=== PATIENT | female | born 1980 | race Caucasian/White ===

== ENCOUNTER 2017-02-26 04:20 | Emergency (ER) | payer SELFPAY ==
[~2017-02-26] VITALS: Ht 162.6 cm; Wt 79.4 kg
[2017-02-26 04:23] VITALS: BP 130/90
--- NOTE | 2017-02-26 04:30 | NUR ---
TO ER BED 11
--- NOTE | 2017-02-26 04:35 | NUR ---
Patient being evaluated by physician at bedside.
--- NOTE | 2017-02-26 04:35 | NUR ---
TO ER BED 11
--- NOTE | 2017-02-26 04:35 | NUR ---
Soniya morales in ED - 02/26/17 at 0447 by [facility] TO ER BED 11
--- NOTE | 2017-02-26 04:36 | NUR ---
PATIENT IS A 36 Y/O FEMALE WHO PRESENTS TO THE ED S/P FALL. PT STATES, "I FELL ON MY LEFT LEG WHEN I WAS GOING TO THE KITCHEN." PT REPORTS 10/10 SHARP PAIN ON THE LEFT LEG AND FOOT THAT DOES NOT RADIATE. SENSATION INTACT, ROM INTACT, AND CAP REFILL IMMEDIATE. PT DENIES CP, SOB, REPORTS NAUSEA DENIES VOMITING/DIARRHEA. PT AAOX4, RR EVEN/UNLABORED. PT REPOSITIONED FOR COMFORT, BED IN LOWEST POSITION. ER MD DR. SABA NOTIFIED. WILL CONTINUE TO MONITOR.
[2017-02-26] MEDS ORDERED: MORPHINE SULFATE 2 MG/ML SYR IM ONE (04:40)
[2017-02-26] MEDS ORDERED: ONDANSETRON 4 MG ODT PO ONE (04:40)
[2017-02-26 06:14] VITALS: BP 121/87
--- NOTE | 2017-02-26 06:14 | NUR ---
Patient discharged with v/s stable. Written and verbal after care instructions given and explained. Patient alert, oriented and verbalized understanding of instructions. Ambulatory with steady gait. All questions addressed prior to discharge. ID band removed. Patient advised to follow up with PMD. Rx of MOTRIN 800MG AND TRAMADOL 50MG given. Patient educated on indication of medication including possible reaction and side effects. Opportunity to ask questions provided and answered.
== END 2017-02-26 06:14 | disposition home or self-care (01) ==
LOC: MED 04:20
DX: S93.402A Sprain of unspecified ligament of left ankle, initial encounter (principal); S83.92XA Sprain of unspecified site of left knee, initial encounter; R03.0 Elevated blood-pressure reading, without diagnosis of hypertension; W01.0XXA Fall on same level from slipping, tripping and stumbling without subsequent striking against object, initial encounter; Y93.89 Activity, other specified; Y92.89 Other specified places as the place of occurrence of the external cause; Y99.8 Other external cause status
CPT/HCPCS: 73562; 73610; 81025; 96372; 99284; J2270; Q0092; S0119